=== PATIENT | female | born 1985 | race Caucasian/White ===

== ENCOUNTER 2022-03-21 18:16 | Emergency (ER) | payer MEDICAID ==
[~2022-03-21] VITALS: Ht 165.1 cm; Wt 48.0 kg
[2022-03-21 21:57] LABS: BASOPHILS % 0.5 % (0.0-2.0); EOSINOPHILS % 0.1 % (0.0-5.0); HEMATOCRIT. 39.7 % (36.0-48.0); HEMOGLOBIN. 13.6 g/dL (12.0-16.0); LYMPHOCYTES % 16.4 % (20.0-50.0); MEAN CORPUSCULAR HEMOGLOBIN 29.5 pg (28.0-32.0); MEAN CORPUSCULAR VOLUME 86.3 fL (81.0-99.0); MEAN PLATELET VOLUME 7.2 fl (7.4-10.4); MONOCYTES % 5.7 % (2.0-8.0); NEUTROPHILS % 77.3 % (40.0-76.0); PLATELET 411 x1000/uL (130-400); RED BLOOD CELL COUNT 4.61 mill/uL (4.2-5.4); RED CELL DISTRIBUTION WIDTH 15.1 % (11.6-14.6)
[2022-03-21 22:03] LABS: CHLORIDE 111 mEq/L (98-107)
[2022-03-21 22:07] LABS: HCG SCREEN NEGATIVE
[2022-03-21 22:20] LABS: ETHANOL BLOOD < 10 mg/dL
[2022-03-21 23:42] LABS: CLARITY URINE CLOUDY (CLEAR); COLOR URINE DARK YELLOW (YELLOW); KETONES URINE 3+ (NEGATIVE); LEUKOCYTE ESTERASE URINE 1+ (NEGATIVE); NITRITE URINE NEGATIVE (NEGATIVE); OCCULT BLOOD URINE 3+ (NEGATIVE); PH URINE 5.5 (4.5-8.0); PROTEIN URINE 2+ (NEGATIVE)
[2022-03-22 00:33] LABS: *BARBITURATES SCREEN URINE NEGATIVE (NEGATIVE); *BENZODIAZEPINES SCREEN URINE NEGATIVE (NEGATIVE); *COCAINE SCREEN URINE NEGATIVE (NEGATIVE); CANNABINOID URINE SCREEN NEGATIVE (NEGATIVE); METHADONE URINE SCREEN NEGATIVE (NEGATIVE); OPIATES URINE SCREEN NEGATIVE (NEGATIVE); PHENCYCLIDINE URINE SCREEN NEGATIVE (NEGATIVE)
[2022-03-22 00:34] LABS: *AMPHETAMINES SCREEN URINE PRESUMTIVE POSITIVE (NEGATIVE)
[2022-03-22] MEDS ORDERED: LORAZEPAM 1MG TABLET PO ONE ×2 (11:45→12:15)
[2022-03-22] MEDS ORDERED: LORAZEPAM 2MG/ML CPJ IM STA (12:10)
[2022-03-22] MEDS ORDERED: OLANZAPINE 10 MG/VIAL IM ONE (12:15)
[2022-03-23] MEDS ORDERED: LORAZEPAM 0.5MG TABLET PO NR (00:15)
[2022-03-23] MEDS ORDERED: LORAZEPAM 2MG/ML CPJ IM NR (00:30)
[2022-03-23] MEDS: LORAZEPAM 2MG/ML CPJ IM ONE (00:38)
[2022-03-23] MEDS ORDERED: LORAZEPAM 1MG TABLET PO ONE (08:00)
[2022-03-23] MEDS: RISPERIDONE 1MG TABLET PO SCH ×2 (18:03→21:00)
[2022-03-24] MEDS: RISPERIDONE 1MG TABLET PO SCH ×2 (09:39→21:26)
[2022-03-24] MEDS ORDERED: LORAZEPAM 2MG/ML CPJ IM STA (12:03)
[2022-03-24] MEDS ORDERED: OLANZAPINE 10 MG/VIAL IM ONE (12:15)
[2022-03-25] MEDS: RISPERIDONE 1MG TABLET PO SCH ×2 (09:27→21:30)
[2022-03-25] MEDS: LORAZEPAM 2MG/ML CPJ IM ONE (09:27)
[2022-03-25] MEDS ORDERED: LORAZEPAM 1MG TABLET PO ONE (14:00)
[2022-03-26] MEDS ORDERED: SULFAMETHOXAZOLE/TRIMETHOPRIM 800/160MG TABLET PO SCH
[2022-03-26] MEDS ORDERED: LORAZEPAM 1MG TABLET PO PRN (09:15)
[2022-03-26] MEDS ORDERED: OLANZAPINE 5MG TABLET PO SCH ×2 (10:00→17:00)
[2022-03-26 15:50] VITALS: BP 145/89
== END 2022-03-26 16:08 | disposition short-term general hospital (02) ==
LOC: ER 18:16 → EDBD 18:16 → ER 03-26 16:08
DX: R45.1 Restlessness and agitation (principal); F15.10 Other stimulant abuse, uncomplicated; Z20.822 Contact with and (suspected) exposure to COVID-19
CPT/HCPCS: 36415; 70450; 71045; 80053; 80305; 80307; 80320; 80329; 81003; 82140; 82962; 84443; 84703; 85025; 87426; 93005; 96372; 99285; C9803; J2060; J3490; U0003; U0005; G0480